=== PATIENT | female | born 1970 | race Caucasian/White ===

== ENCOUNTER 2020-06-20 18:05 | Emergency (ER) | payer OTHER ==
[~2020-06-20 18:05] MED LIST: ADMELOG SO100 UNIT/1 SC; ADMELOG SO100 UNIT/1 SQ; ASPIR-LOW81 MG PO; ASPIRIN CHEWABL81 MG PO; BACTRIM DS TAB1 EACH PO; BACTROBAN OINT22 GM EXT; BASAGLAR K100 UNIT/1 SC; BASAGLAR K100 UNIT/1 SQ; BENTYL 20MG TAB20 MG PO; CARAFATE 1 GM TA1 GM GT; CEPHALEXIN500 MG PO; CLEOCIN HCL300 MG PO; CYMBALTA 30 MG30 MG PO; CYMBALTA60 MG PO; DOK100 MG PO; DULOXETINE HCL60 MG PO; FEOSOL325 MG PO; GLUCOPHAGE1000 MG PO; IBUPROFEN600 MG PO; IPRAT-ALBUT 0.5-3 ML INH; IPRAT-ALBUT 0.5-3 ML NEB; KEFLEX CAP 500500 MG PO; LEVOTHYROXINE150 MCG PO; LISINOPRIL20 MG PO; LOPRESSOR50 MG PO; MEDROL4 MG PO; METFORMIN HCL1000 MG PO; METOPROLOL TART50 MG PO; MIRALAX17 GM PO; NEURONTIN800 MG PO; NYSTATIN1 EAC2 TP; PERCOCET 5/325 T1 EA PO; PHENERGAN 25 MG25 M1 PO; PREDNISONE 10 M10 MG GT; PRINIVIL20 MG PO; PROTONIX40 MG PO; PROZAC40 MG PO; QUETIAPINE FUM100 MG PO; SEROQUEL100 MG PO; SEROQUEL50 MG PO; SUCRALFATE1 GM PO; SYMBICORT 160-1 INHA INH; SYNTHROID150 MCG PO; SYNTHROID175 MCG PO; TOPAMAX50 MG PO; TRAMADOL HCL50 MG PO; ULTRAM50 MG PO; VENTOLIN HFA 66.7 GM INH; WALKER; ZOFRAN ODT 4 MG4 MG PO; ZOFRAN ODT 4 MG4 MG SL; ZOFRAN4 MG PO
[2020-06-20 19:42] LABS: HEMOGLOBIN 14.7 gm/dl (12.3-15.3); RED BLOOD COUNT 5.25 M/UL (4.00-5.10); WHITE BLOOD COUNT 10.6 K/UL (4.5-11.0)
[2020-06-21] MEDS ORDERED: AUGMENTIN 500-500 MG PO (00:27)
[2020-06-21] MEDS ORDERED: FLAGYL500 MG PO (00:27)
== END 2020-06-21 00:43 | disposition home or self-care (01) ==
LOC: ER1 18:05
PROVIDERS: Family Medicine
DX: K52.9 Noninfective gastroenteritis and colitis, unspecified (principal); E11.65 Type 2 diabetes mellitus with hyperglycemia; I10 Essential (primary) hypertension; J44.9 Chronic obstructive pulmonary disease, unspecified; F17.290 Nicotine dependence, other tobacco product, uncomplicated; Z88.5 Allergy status to narcotic agent
CPT/HCPCS: 36415; 36600; 71045; 80053; 80307; 82803; 82962; 83605; 83735; 84100; 85025; 87040; 93005; 99284; G0480; Q9967

== ENCOUNTER 2020-06-22 17:06 | Emergency (ER) | payer OTHER ==
[~2020-06-22 17:06] MED LIST changes: +AUGMENTIN 500-500 MG PO; +FLAGYL500 MG PO
[2020-06-22 18:23] LABS: HEMOGLOBIN 12.4 gm/dl (12.3-15.3); RED BLOOD COUNT 4.48 M/UL (4.00-5.10); WHITE BLOOD COUNT 6.3 K/UL (4.5-11.0)
[2020-06-22 19:01] LABS: BUN/CREATININE RATIO 22 (0-10)
== END 2020-06-22 20:45 | disposition home or self-care (01) ==
LOC: ER1 17:06
PROVIDERS: Emergency Medicine
DX: E11.65 Type 2 diabetes mellitus with hyperglycemia (principal); I10 Essential (primary) hypertension; E78.5 Hyperlipidemia, unspecified; J44.9 Chronic obstructive pulmonary disease, unspecified; F17.290 Nicotine dependence, other tobacco product, uncomplicated; Z86.73 Personal history of transient ischemic attack (TIA), and cerebral infarction without residual deficits; Z90.49 Acquired absence of other specified parts of digestive tract; Z90.89 Acquired absence of other organs; Z88.5 Allergy status to narcotic agent
CPT/HCPCS: 70450; 71045; 80053; 82009; 82803; 82962; 85025; 93005; 96374; 96375; 99285; G0480; J2405

== ENCOUNTER 2020-09-24 15:20 | Emergency (ER) | payer OTHER ==
[2020-09-24 16:54] LABS: HEMOGLOBIN 13.8 gm/dl (12.3-15.3); RED BLOOD COUNT 5.01 M/UL (4.00-5.10); WHITE BLOOD COUNT 12.8 K/UL (4.5-11.0)
[2020-09-24 17:09] LABS: BUN/CREATININE RATIO 20 (0-10)
[2020-09-24] MEDS ORDERED: IBU800 MG PO (21:07)
[2020-09-24] MEDS ORDERED: BACTRIM DS TAB1 EACH PO (21:07)
[2020-09-24] MEDS ORDERED: HYDROCODONE-AC1 EACH PO (21:12)
== END 2020-09-24 21:33 | disposition home or self-care (01) ==
LOC: ER1 15:20
PROVIDERS: Nurse Practitioner
DX: L02.31 Cutaneous abscess of buttock (principal); E03.9 Hypothyroidism, unspecified; E11.9 Type 2 diabetes mellitus without complications; J44.9 Chronic obstructive pulmonary disease, unspecified; F17.290 Nicotine dependence, other tobacco product, uncomplicated; Z86.73 Personal history of transient ischemic attack (TIA), and cerebral infarction without residual deficits; Z88.5 Allergy status to narcotic agent; Z79.01 Long term (current) use of anticoagulants; Z79.899 Other long term (current) drug therapy
CPT/HCPCS: 72193; 80053; 80307; 81001; 82009; 83605; 85025; 86140; 87040; 87070; 87205; 96372; 96374; 96375; 99285; J2270; J2405; J3370; Q9967

== ENCOUNTER 2020-11-18 22:33 | Emergency (ER) | payer OTHER ==
[~2020-11-18 22:33] MED LIST changes: +HYDROCODONE-AC1 EACH PO; +IBU800 MG PO
[2020-11-18 23:39] LABS: HEMOGLOBIN 12.4 gm/dl (12.3-15.3); RED BLOOD COUNT 4.25 M/UL (4.00-5.10); WHITE BLOOD COUNT 6.7 K/UL (4.5-11.0)
[2020-11-19] LABS: BUN/CREATININE RATIO 20 (0-10)
[2020-11-19 03:56] LABS: BUN/CREATININE RATIO 18 (0-10)
[2020-11-19] MEDS ORDERED: REGLAN5 MG PO (05:07)
== END 2020-11-19 06:58 | disposition home or self-care (01) ==
LOC: ER1 22:33
PROVIDERS: Student in an Organized Health Care Education/Training Program
DX: K31.84 Gastroparesis (principal); N28.1 Cyst of kidney, acquired; E11.65 Type 2 diabetes mellitus with hyperglycemia; J44.9 Chronic obstructive pulmonary disease, unspecified; F17.290 Nicotine dependence, other tobacco product, uncomplicated; Z90.49 Acquired absence of other specified parts of digestive tract; Z90.89 Acquired absence of other organs; Z20.822 Contact with and (suspected) exposure to COVID-19
CPT/HCPCS: 0240U; 80053; 80076; 81001; 82550; 82553; 82962; 83605; 83690; 83735; 83874; 83880; 84100; 84484; 84703; 85025; 87086; 96374; 96375; 96376; 99285; J1170; J2270; J2405; J2765; Q9967